=== PATIENT | female | born 2000 | race Caucasian/White ===

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

== ENCOUNTER 2019-01-23 18:44 | Emergency (ER) | payer OTHER ==
--- OUTSIDE RECORDS SUMMARY | 2019-01-23 18:52 | XMS REPORT | Continuity of Care Document ---
:2000 Author Organization [facility] Allergies and Intolerances No Known Allergies Medications Patient Not On Self-Medication Medications At Time Of Discharge No data in the system Problems No Data in the system Procedures No data in the system Results Radiology Results Order: FOREARM RT, 2 VIEWSExam Completion Date:11/23/2018 12: 1:44 PM RIGHT FOREARM X-RAYS CLINICAL INFORMATION: -- INJURY, UNSPECIFIED COMPARISON: None. PROCEDURE: Two projections of the right forearm were obtained. FINDINGS/IMPRESSION: No acute fracture or dislocation. END OF IMPRESSION [facility] submits Radiology results to [employer] and [employer] then provides those same results to [facility]. All results are available to [facility] and [facility] provider portal users. [facility] DICOM images are available to the [employer] provider portal users only. [facility] DICOM images are not available to the [facility] provider portal users. There is no current [facility] cross[facility] functionality allowing images to be available through the [facility] to [facility] connectivity. Electronically signed By: Benja Gudino M.D. Read By: BENJA VARGHESEMANDate: 11/23/2018 13:46Order: WRIST COMPLETE RTExam Completion Date:11/23/2018 12: 1:44 PM RIGHT WRIST X-RAYS CLINICAL INFORMATION: -- INJURY, UNSPECIFIED COMPARISON: None. PROCEDURE: Four projections of the right wrist were obtained. FINDINGS/IMPRESSION: No acute fracture or dislocation. The joint spaces are maintained. END OF IMPRESSION [facility] submits Radiology results to [employer] and [employer] then provides those same results to [facility]. All results are available to [employer] and [facility] provider portal users. [facility] DICOM images are available to the [facility] provider portal users only. [facility] DICOM images are not available to the [employer] [facility] provider portal users. There is no current [facility] cross-[facility] functionality allowing images to be available through the [facility] to [facility] connectivity. Electronically signed By: Benja Gudino M.D. Read By: BENJA GUDINO Date : 11/23/2018 13:46 Social History Code Code System Social History Description Dates Observed Observation 044880834 SNOMED CT Current Smoking Unknown if ever Status smoked UNK AdministrativeGender Sex Assigned At Unknown Vital Signs Code Code System Vitals Value Date 8310-5 LOINC Body Temperature 98.4 [degF] 11/23/2018 8865-8 LOINC Pulse Rate 74 {beats}/min 11/23/2018 9279-1 LOINC Respiratory Rate 14 /min 11/23/2018 88092-9 LOINC O2% BldC Oximetry 97 % 11/23/2018 8480-6 LOINC BP Systolic 130 mm[Hg] 11/23/2018 8462-4 LOINC BP Diastolic 67 mm[Hg] 11/23/2018 8302-2 LOINC Height 63 [in_i] 11/23/2018 39853-8 LOINC Weight 90.9 kg 11/23/2018 3140-1 LOINC Body surface area Derived from formula 1.94 m2 11/23/2018 18899-3 LOINC BMI (Body Mass Index) 35.5 kg/m2 11/23/2018 Goals Section No data in the system Health Concerns No data in the systemEncounter Diagnosis Date Code Code System Diagnosis Status S60.211A ICD10 CONTUSION RIGHT WRIST INITIAL ENC Active Advance Directives *[facility] - CONSENT IS YES Directive Type Effective Date [employer] Consultant Notes Supporting Document Name Address Phone No Directive Type 11/23/2018 Not Specified Not Specified Not Specified None No specified 12:03:23 PM PT STATES NO ADVANCE DIRECTIVES Directive Type Effective Date [employer] Consultant Notes Supporting Document Name Address Phone No Directive Type 11/23/2018 Not Specified Not Specified Not Specified None No specified 11:43:00 AM Encounters Encounter Diagnosis Location Date CONTUSION RIGHT WRIST INITIAL ENC [facility] 11/23/2018 Family History Family history not obtained Functional Status Code Functional Condition Code System Date Status Independent adls SNOMED CT 11/23/2018 Active Appears well nourished/hydrated SNOMED CT 11/23/2018 Active Immunizations No data in the system Medical Equipment No data in the system Mental Status Code Cognitive Condition Code System Date Status No acute distress SNOMED CT 11/23/2018 Active Oriented x [address] 11/23/[address] 11/23/2018 Active Assessment and Plan Assessments No data in the systemPlan Of Treatment No data in the systemPending Tests No data in the system Hospital Discharge Instructions No data in the system Reason for Visit Reason for Visit Wrist Pain RIGHT
[2019-01-23 18:58] VITALS: BP 141/84
--- NOTE | 2019-01-23 19:42 | UC ---
UC General HPI - HPI Summary HPI Summary: 18-year-old female who states that she had some blood in her stool this morning. She states she passed something hard from her rectum which she thought might be constipated piece of stool but she said it was hard like a rock she was concerned about that. She denies any recent rectal intercourse or use of foreign objects in her rectum. She states that she has some generalized abdominal cramping today. She also had a negative test in the past week. She is not on any control nor using condoms. - History of Current Complaint Chief Complaint: UCGeneralIllness Stated Complaint: PERSONAL Time Seen by Provider: 01/23/19 18:55 Hx Obtained From: Patient Hx Last Menstrual Period: 01/05/19 Onset/Duration: Gradual Onset Onset Severity: Mild Current Severity: Mild Pain Intensity: 5 Associated Signs & Symptoms: Positive: Other - Patient states she had some blood in her stool this morning. She has no specific point tenderness for abdominal pain but says she just feels crampy. She is presently midcycle. - Allergy/Home Medications Allergies/Adverse Reactions: Allergies Allergy/AdvReac Type Severity Reaction Status Date / Time No Known Allergies Allergy Verified 01/23/19 18:59 PMH/Surg Hx/FS Hx/Imm Hx Previously Healthy: Yes - Surgical History Surgical History: None - Family History Known Family History: Positive: Hypertension - Social History Occupation: Employed Full-time Alcohol Use: Rare Substance Use Type: Marijuana Substance Use Comment - Amount & Last Used: 3 mos. Smoking Status (MU): Light Every Day Tobacco Smoker Type: Cigarettes - Immunization History Vaccination Up to Date: Yes Review of Systems All Other Systems Reviewed And Are Negative: Yes Gastrointestinal: Positive: Other - Patient states generalized abdominal cramping today. She had some blood in her stool this morning and passed a very hard "piece of something" which she didn't think was a piece of stool but she was unsure what it was. Is Patient Immunocompromised?: No Physical Exam Triage Information Reviewed: Yes Appearance: Well-Appearing, Well-Nourished Vital Signs: Initial Vital Signs Temp 99.0 F 01/23/19 18:54 Pulse 72 01/23/19 18:54 Resp 16 01/23/19 18:54 BP 141/84 01/23/19 18:54 Pulse Ox 100 01/23/19 18:54 Vital Signs Reviewed: Yes Eyes: Positive: Conjunctiva Clear ENT: Positive: Hearing grossly normal, Pharynx normal, TMs normal, Uvula midline Neck: Positive: Supple, Nontender, No Lymphadenopathy Respiratory: Positive: Lungs clear, Normal breath sounds, No respiratory distress, No accessory muscle use Cardiovascular: Positive: RRR, No Murmur, Pulses Normal, Brisk Capillary Refill Abdomen Description: Positive: Nontender, No Organomegaly, Soft, Other: - Rectal exam nontender, no external hemorrhoids visualized. Hemoccult was negative.. Negative: CVA Tenderness (R), CVA Tenderness (L), Distended, Guarding, Hepatomegaly, McBurney's Point Tenderness, Splenomegaly Bowel Sounds: Positive: Present Musculoskeletal: Positive: Strength Intact, ROM Intact, No Edema Neurological: Positive: Alert, Muscle Tone Normal Psychological Exam: Normal Skin Exam: Normal Course/Dx - Course Course Of Treatment: Patient is comfortable here, does not appear ill, walks and moves without difficulty. Urine test was negative. Her Hemoccult was negative. I believe at this time she may be having some mid cycle pain. I advised her to follow-up with a music educator if she continues to have any bloody stool. She is to go the emergency room for any worsening symptoms, worsening abdominal pain, fever. Patient is agreeable to this plan of action. - Diagnoses Provider Diagnosis: Midcycle pain, History of bloody stools Discharge ED - Sign-Out/Discharge Documenting (check all that apply): Patient Departure All imaging exams completed and their final reports reviewed: No Studies - Discharge Plan Condition: Good Disposition: HOME Referrals: No Primary Care Phys,NOPCP [Primary Care Provider] - [facility] [Outside] Additional Instructions: Increase fluids, definite follow-up in the emergency room if you develop develop any worsening symptoms, fever, localization of abdominal pain. Follow- up with a music educator if you continue to have blood in her stools. - Billing Disposition and Condition Condition: GOOD Disposition: Home
== END 2019-01-23 19:41 | disposition home or self-care (01) ==
LOC: UCCORT 18:44
DX: N94.0 Mittelschmerz (principal); K92.1 Melena; Z32.02 Encounter for pregnancy test, result negative; F17.210 Nicotine dependence, cigarettes, uncomplicated
CPT/HCPCS: 82270; 84702; 99211; G0463